=== PATIENT | male | born 1975 | race Caucasian/White ===

== ENCOUNTER 2017-03-28 16:08 | Emergency (ER) | payer OTHER ==
--- NOTE | 2017-03-28 16:54 | EDPHY ---
H & P Stated Complaint: transient (10 min) episode of flasing lights l eye/about an hr ago/ems exam Time Seen by Provider: 03/28/17 16:53 HPI/ROS: HPI: This is a 41-year-old male who presents with Chief Complaint: transient (10 min) episode of flashing lights l eye/about an hr ago/ems exam Location: Left eye Quality: Floaters Duration: 10 min Signs and Symptoms: + dizziness, no fever, no neck stiffness, + generalized frontal headache, no diplopia, no visual loss, + nausea, no vomiting, no nasal congestion, no sinus pressure, no chest pain, no shortness of breath, no vertigo Timing: Acute, resolved Severity: Mild Context: Patient has a history of asthma and GERD was at the natural [place] with his family and the outside exhibit when suddenly started to experience peripheral left eye white flashing lights that lasted approximately 10 min. Soon after he began to feel dizzy that worsened when he stood up and improved when he laid down. He then felt nauseous. EMS was called and by the time they arrived he had resolution of the flashing lights in his left eye. Patient is very concerned that he has a brain tumor something wrong with his brain as he went to the dentist last week and had a panoramic x-ray and the dentist informed him that there was something abnormal behind his nasal cavity but he should not worry about it. Denies any weakness/radiation/aphasia/ ataxia. Symptoms have since resolved except for a frontal headache. In triage the nurse noted, no neuro deficits. Patient reports that he ate breakfast and lunch today. Modifying Factors: None Comment: ROS: see HPI Constitutional: No fever, no chills, no weight loss Eyes: No blurred vision Respiratory: No shortness of breath, no cough Cardiovascular: No chest pain Gastrointestinal: No nausea, no vomiting, no diarrhea Genitourinary: No dysuria Extremities: No myalgias Neurologic: No weakness, no numbness Skin: No rashes Hematologic: No bruising, no bleeding MEDICAL/SURGICAL/SOCIAL HISTORY: Medical history: Asthma, GERD Surgical history: Denies Social history: .. General appearance: Anxious middle-aged white male, awake and alert, no obvious distress Visual Acuity: noted from Nurse's notes. Pupils: equal round and reactive to light. EOMI. Lids: no edema or swelling. Skin: no proptosis, no periorbital erythema or swelling, no vesicles Conjunctivae: not injected, no discharge Cornea: fluorescein exam not performed Anterior chamber: normal, no hyphema or hypopyon HEENT: Atraumatic and normocephalic. Tympanic membranes clear. Oropharynx clear , no exudate and moist pink mucosa. Airway patent. No lymphadenopathy. No meningismus. No carotid bruits. Cardiovascular: Normal S1/S2, regular rate, regular rhythm, without murmur rub or gallop. PULMONARY/CHEST: Symmetrical and nontender. Clear to auscultation bilaterally. Good air movement. No accessory muscle usage. ABDOMEN: Soft, nondistended, nontender, no rebound, no guarding, no peritoneal signs, no masses or organomegaly. No CVAT. EXTREMITIES: 2/2 pulses, strength 5/5, no deformities, no clubbing, no cyanosis or edema. NEUROLOGICAL: no focal neuro deficits. GCS 15. Cranial nerves 2-12 grossly intact no tenderness with palpation over the temporal area. SKIN: Warm and dry, no erythema. no rash. Good capillary refill. Source: Patient, Family () Exam Limitations: No limitations - Personal History Current Tetanus/Diphtheria Vaccine: Yes Tetanus Vaccine Date: 2012 - Medical/Surgical History Hx Asthma: Yes Hx Chronic Respiratory Disease: No Hx Diabetes: No Hx Cardiac Disease: No Hx Renal Disease: No Hx Cirrhosis: No Hx Alcoholism: No Hx HIV/AIDS: No Hx Splenectomy or Spleen Trauma: No Other PMH: asthma - Social History Smoking Status: Never smoked Constitutional: Initial Vital Signs Temperature (C) 36.8 C 03/28/17 16:14 Heart Rate 78 03/28/17 16:14 Respiratory Rate 18 03/28/17 16:14 Blood Pressure 124/90 H 03/28/17 16:14 O2 Sat (%) 98 03/28/17 16:14 O2 Delivery Mode Room Air Allergies/Adverse Reactions: aspirin Allergy (Verified 03/28/17 16:13) Home Medications: Medication Instructions Recorded Ranitidine HCl 03/28/17 Medical Decision Making - Diagnostics Imaging Results: Imaging Impressions Brain MRI 03/28/17 17:15 Impression: Normal brain. No ischemia, intracranial hemorrhage, mass, or white matter disease. Findings discussed with emergency department physician clerical assistant, THELMA Gaines on March 28, 2017 at 1813 hours. ED Course/Re-evaluation: Labs, IV fluids, MRI brain ordered Vital signs stable upon arrival No signs of carotid stenosis/CVA/temporal neuritis/trigeminal neuralgia/Randall's palsy 1812: Called by radiologist Dr. Pond who advised that MRI is completely normal with no signs of ischemia, mass, infarct, chronic changes Laboratory studies reviewed and completely within normal limits. Suspect headache as etiology but referred to Ophthalmology outpatient follow- up. This patient was seen under the supervision of my secondary supervising physician. I evaluated care for this patient independently. Differential Diagnosis: Differential including but not limited to peripheral and central causes of vertigo, orthostatic causes including dehydration, complex migraine, sinus disease and blood loss. - Data Points Laboratory Results: Laboratory Results 03/28/17 17:26 03/28/17 17:26 03/28/17 03/28/17 17:26 17:26 WBC 8.66 10^3/uL 10^3/uL (3.80-9.50) RBC 5.34 10^6/uL 10^6/uL (4.40-6.38) Hgb 16.5 g/dL g/dL (13.7-17.5) Hct 44.8 % % (40.0-51.0) MCV 83.9 fL fL (81.5-99.8) MCH 30.9 pg pg (27.9-34.1) MCHC 36.8 g/dL H g/dL (32.4-36.7) RDW 12.7 % % (11.5-15.2) Plt Count 180 10^3/uL 10^3/uL (150-400) MPV 8.9 fL fL (8.7-11.7) Neut % (Auto) 73.0 % % (39.3-74.2) Lymph % (Auto) 19.1 % % (15.0-45.0) [place] % (Auto) 4.7 % % (4.5-13.0) Eos % (Auto) 2.4 % % (0.6-7.6) Baso % (Auto) 0.5 % % (0.3-1.7) Nucleat RBC Rel Count 0.0 % % (0.0-0.2) Absolute Neuts (auto) 6.32 10^3/uL 10^3/uL (1.70-6.50) Absolute Lymphs (auto) 1.65 10^3/uL 10^3/uL (1.00-3.00) Absolute Monos (auto) 0.41 10^3/uL 10^3/uL (0.30-0.80) Absolute Eos (auto) 0.21 10^3/uL 10^3/uL (0.03-0.40) Absolute Basos (auto) 0.04 10^3/uL 10^3/uL (0.02-0.10) Absolute Nucleated RBC 0.00 10^3/uL 10^3/uL (0-0.01) Immature Gran % 0.3 % % (0.0-1.1) Immature Gran # 0.03 10^3/uL 10^3/uL (0.00-0.10) ESR 2 MM/HR MM/HR (0-15) Sodium 140 mEq/L mEq/L (135-145) Potassium 4.2 mEq/L mEq/L (3.5-5.2) Chloride 104 mEq/L mEq/L (97-110) Carbon Dioxide 22 mEq/l mEq/l (22-31) Anion Gap 14 mEq/L mEq/L (8-16) BUN 20 mg/dL mg/dL (7-23) Creatinine 1.2 mg/dL mg/dL (0.7-1.3) Estimated GFR > 60 Glucose 101 mg/dL H mg/dL (70-100) Calcium 9.8 mg/dL mg/dL (8.5-10.4) Medications Given: Discontinued Medications Sodium Chloride (Ns) 1,000 mls @ 0 mls/hr IV ONCE ONE; Wide Open PRN Reason: Protocol Stop: 03/28/17 17:16 Last Admin: 03/28/17 17:26 Dose: 1,000 mls Departure - Departure Disposition: Home, Routine, Self-Care Clinical Impression: Visual floaters Qualifiers: Laterality: left Qualified Code(s): H43.392 - Other vitreous opacities, left eye Condition: Good Instructions: Visual Floaters (ED) Referrals: Fernando Zaldivar MD [Primary Care Provider] - As per Instructions Bill Infante MD [Medical Doctor] - 5-7 days, call for appt.
[2017-03-28] MEDS ORDERED: NS 1,000 ML IV ONE (17:15)
[2017-03-28 17:38] LABS: PLATELET COUNT 180 10^3/uL (150-400)
[2017-03-28 18:20] VITALS: BP 128/79; PULSE 71; RESP 16; TEMP 98.8; O2SAT 97
== END 2017-03-28 18:52 | disposition home or self-care (01) ==
DX: H43.392 Other vitreous opacities, left eye (principal); J45.909 Unspecified asthma, uncomplicated; E86.9 Volume depletion, unspecified